=== PATIENT | male | born 1980 | race Caucasian/White ===

== ENCOUNTER → 2016-12-30 | Outpatient (CLI) | payer BC ==
--- NOTE | 2016-12-30 11:21 | NM ---
Addendum: Additional images were obtained at rest following the administration of 27.5 mCi of technetium 99m labeled sestamibi. FINDINGS/IMPRESSION: The uptake pattern addressed is similar to the stress pattern. No evidence of reversible perfusion to suggest underlying ischemia. Wall motion is also similar with a 58% ejection fraction. EXAMINATION: Nuclear medicine myocardial perfusion study with exercise stress test. HISTORY: Chest pain. PROCEDURE: Patient exercised according to Moreno protocol for 11 minutes and 51 seconds and achieved maximal heart rate of 179 beats per minute. Adequate exercise. Following intravenous administration of 27.5 mCi of technetium 99m sestamibi, stress SPECT images including gating imaging was performed. FINDINGS: Stress myocardial SPECT images demonstrates mildly decreased uptake within a small area along the mid anteroseptal. Review of gated images demonstrates normal wall motion, contractility and wall thickening. The left ventricular ejection fraction is 61 %. The left ventricular chamber size is normal. IMPRESSION: 1. Small area of mildly decreased perfusion along the midportion of the anteroseptal wall. Correlation with the rest images may be beneficial. 2. Normal ventricular chamber size and function with ejection fraction of 61 %. MTDD
== END ==
LOC: MW.NM 07:54
PROVIDERS: ATTEND Family Medicine
DX: R07.9 Chest pain, unspecified (principal)
CPT/HCPCS: 78451; A9500